=== PATIENT | female | born 1985 | race Caucasian/White ===

== ENCOUNTER 2016-08-20 12:40 | Emergency (ER) | payer MEDICAID ==
[~2016-08-20] VITALS: Ht 170.2 cm; Wt 76.2 kg
[~2016-08-20 12:40] MED LIST: COLACE100 MG PO; FERROUS SULFAT325 M1 PO; KEFLEX500 M1 PO; MOTRIN800 MG PO; PERCOCET 325-51 TAB PO; PRENATAL PLUS I1 TAB PO; RISPERDAL1 MG PO; WELLBUTRIN XL150 MG PO; XANAX1 MG PO; ZOVIRAX200 MG PO; [UNRECOGNIZED DRUG - OTHER] PO
[2016-08-20] MEDS ORDERED: AUGMENTIN 875-1 EACH PO (16:22)
[2016-08-20] MEDS ORDERED: NAPROSYN500 MG PO (16:22)
== END 2016-08-20 13:30 | disposition short-term general hospital (02) ==
LOC: ER 12:40
DX: K04.7 Periapical abscess without sinus (principal)

== ENCOUNTER 2016-10-16 19:26 | Emergency (ER) | payer OTHER ==
[~2016-10-16] VITALS: Ht 170.2 cm; Wt 81.6 kg
[~2016-10-16 19:26] MED LIST changes: +AUGMENTIN 875-1 EACH PO; +NAPROSYN500 MG PO
== END 2016-10-16 21:08 ==
LOC: ER 19:26
DX: R25.9 Unspecified abnormal involuntary movements (principal); N39.0 Urinary tract infection, site not specified; F32.9 Major depressive disorder, single episode, unspecified; F41.9 Anxiety disorder, unspecified; Z88.5 Allergy status to narcotic agent; Z88.6 Allergy status to analgesic agent; Z79.899 Other long term (current) drug therapy; Z98.890 Other specified postprocedural states; Z87.891 Personal history of nicotine dependence